=== PATIENT | female | born 1980 | race Caucasian/White ===

== ENCOUNTER 2018-07-25 03:17 | Emergency (ER) | payer MEDICAID ==
[~2018-07-25] VITALS: Ht 154.9 cm; Wt 70.9 kg
[~2018-07-25 03:17] MED LIST: TRAM50TA2 PO
[2018-07-25 03:19] VITALS: Ht 154.9 cm; Wt 70.9 kg
[2018-07-25] MEDS ORDERED: SOD CHLORIDE 0.9% 1,000 ML IV STA (03:58)
[2018-07-25] MEDS ORDERED: ONDANSETRON 4 MG INJ IV STA (03:58)
[2018-07-25] MEDS ORDERED: HYDROmorphONE 0.5 MG/0.5 ML SYG IV STA (04:03)
[2018-07-25] MEDS ORDERED: TRAM50TA2 PO ×2 (04:17→05:31)
[2018-07-25] MEDS ORDERED: ESOM40CA51 PO (04:17)
[2018-07-25] MEDS ORDERED: IBUP-1544 PO (04:18)
[2018-07-25] MEDS ORDERED: KETOROLAC 30 MG INJ IV STA (05:20)
--- NOTE | 2018-07-25 05:29 | ERD ---
ER Documentation Chief Complaint Chief Complaint FLANK PAIN AND RLQ-ABD PAIN WITH N/V WITH DYSUIRA X1DAY HPI Is a 37-year-old female coming appointment with a problem with nausea vomiting dysuria for 1 day. Pain with urination. Urgency frequency as well. No chills. No other current issues. ROS All systems reviewed and are negative except as per history of present illness. Medications Home Meds Reported Medications Ibuprofen* (Ibuprofen*) 800 Mg Tablet, 800 MG PO Q6H PRN for PAIN LEVEL 1-5 07/25/18 Tramadol HCl (Tramadol HCl) 50 Mg Tablet, 50 MG PO DAILY for 30 Days, #90 07/25/18 Esomeprazole Magnesium (Esomeprazole Magnesium) 40 Mg Capsule.dr, 40 MG PO DAILY for 90 Days, #90 07/25/18 Discontinued Scripts Tramadol HCl (Tramadol HCl) 50 Mg Tablet, 50 MG PO Q4 PRN for PAIN, #20 TAB Prov:BHARTI BIRCH PA-C 01/16/16 PMhx/Soc History of Surgery: Yes (HYSTERECTOMY,CHOLECYSTECTOMY ) Anesthesia Reaction: No Hx Neurological Disorder: No Hx Respiratory Disorders: No Hx Cardiac Disorders: No Hx Psychiatric Problems: No Hx Miscellaneous Medical Probl: No Hx Alcohol Use: No Hx Substance Use: No Hx Tobacco Use: No Smoking Status: Never smoker Physical Exam Vitals Vital Signs Date Temp Pulse Resp B/P (MAP) Pulse Ox O2 O2 Flow FiO2 Time Delivery Rate 07/25/18 97.9 91 18 142/95 99 03:19 (111) Physical Exam Const: No acute distress Head: Atraumatic Eyes: Normal Conjunctiva ENT: Normal External Ears, Nose and Mouth. Neck: Full range of motion. No meningismus. Resp: Clear to auscultation bilaterally Cardio: Regular rate and rhythm, no murmurs Abd: Soft, non tender, non distended. Normal bowel sounds Skin: No petechiae or rashes Back: No midline or flank tenderness Ext: No cyanosis, or edema Neur: Awake and alert Psych: Normal Mood and Affect Result Diagram: 07/25/18 0400 07/25/18 0400 Results 24 hrs Laboratory Tests Test 07/25/18 04:00 07/25/18 04:17 White Blood Count 14.2 10^3/ul Red Blood Count 4.78 10^6/ul Hemoglobin 13.8 g/dl Hematocrit 41.5 % Mean Corpuscular Volume 86.8 fl Mean Corpuscular Hemoglobin 28.9 pg Mean Corpuscular Hemoglobin Concent 33.3 g/dl Red Cell Distribution Width 12.5 % Platelet Count 342 10^3/UL Mean Platelet Volume 10.4 fl Immature Granulocytes % 0.400 % Neutrophils % 52.0 % Lymphocytes % 38.9 % Monocytes % 6.6 % Eosinophils % 1.6 % Basophils % 0.5 % Nucleated Red Blood Cells % 0.0 /100WBC Immature Granulocytes # 0.060 10^3/ul Neutrophils # 7.4 10^3/ul Lymphocytes # 5.5 10^3/ul Monocytes # 0.9 10^3/ul Eosinophils # 0.2 10^3/ul Basophils # 0.1 10^3/ul Nucleated Red Blood Cells # 0.0 10^3/ul Urine Color GO Urine Clarity CLEAR Urine pH 6.0 Urine Specific [place] 1.002 Urine Ketones NEGATIVE mg/dL Urine Nitrite POSITIVE mg/dL Urine Bilirubin NEGATIVE mg/dL Urine Urobilinogen 1+ mg/dL Urine Leukocyte Esterase NEGATIVE Maryse/ul Urine Microscopic RBC 0 /HPF Urine Microscopic WBC 0 /HPF Urine Hemoglobin 1+ mg/dL Urine Glucose NEGATIVE mg/dL Urine Total Protein NEGATIVE mg/dl Sodium Level 141 mmol/L Potassium Level 3.7 mmol/L Chloride Level 103 mmol/L Carbon Dioxide Level 26 mmol/L Anion Gap 12 Blood Urea Nitrogen 3 mg/dl Creatinine 0.51 mg/dl Est Glomerular Filtrat Rate mL/min > 60 mL/min Glucose Level 153 mg/dl Calcium Level 10.0 mg/dl Total Bilirubin 0.7 mg/dl Direct Bilirubin 0.00 mg/dl Indirect Bilirubin 0.7 mg/dl Aspartate Amino Transf (AST/SGOT) 68 IU/L Alanine Aminotransferase (ALT/SGPT) 99 IU/L Alkaline Phosphatase 169 IU/L Total Protein 8.2 g/dl Albumin 4.6 g/dl Globulin 3.60 g/dl Albumin/Globulin Ratio 1.27 Lipase 102 U/L POC Beta HCG, Qualitative NEGATIVE Current Medications Medications Dose Sig/Vladimir Start Time Status Last (Trade) Ordered Route PRN Stop Time Admin Dose Reason Admin Sodium 1,000 ml @ Q1H STAT 07/25/18 DC 07/25/18 Chloride 1,000 mls/hr IV 03:58 04:11 07/25/18 04:57 Ondansetron 4 mg ONCE STAT 07/25/18 DC 07/25/18 HCl (Zofran IV 03:58 04:11 Inj) 07/25/18 03:59 1 mg ONCE STAT 07/25/18 DC 07/25/18 Hydromorphone IV 04:03 04:10 HCl 07/25/18 04:04 (Dilaudid) Ketorolac 30 mg ONCE STAT 07/25/18 DC Tromethamine IV 05:20 (Toradol) 07/25/18 05:21 Procedures/MDM Medical decision making: Very pleasant patient has also cystitis. No evidence of pyelonephritis. Stable for outpatient management. Will be discharged home with Cipro and Pyridium. Follow with PCP. Departure Diagnosis: Primary Impression: Flank pain Condition: Stable CELESTINO JULIAN Jul 25, 2018 05:29
[2018-07-25] MEDS ORDERED: CIPROFLOXACIN 400MG/D5W 200 ML IVPB ONE (05:30)
[2018-07-25] MEDS ORDERED: CIPR500T4 PO (05:31)
[2018-07-25] MEDS ORDERED: PHEN-538 PO (05:31)
[2018-07-25] MEDS ORDERED: KETOROLAC 30 MG INJ ONE (05:37)
[2018-07-25] MEDS ORDERED: CIPROFLOXACIN 400MG/D5W 200 ML ONE (05:38)
[2018-07-25 06:02] VITALS: BP 109/74; PULSE 82; RESP 16
[2018-07-25] MEDS ORDERED: CEPH-443 PO (20:27)
[2018-07-25] MEDS ORDERED: ONDA4TAB14 PO (20:27)
[2018-07-25] MEDS ORDERED: HYDR-4011 PO (20:27)
[2018-07-25] MEDS ORDERED: IBUP-1542 PO (20:27)
== END 2018-07-25 06:41 | disposition home or self-care (01) ==
LOC: E/R 03:17
DX: R10.31 Right lower quadrant pain (principal); R11.2 Nausea with vomiting, unspecified
CPT/HCPCS: 36415; 71045; 74176; 80053; 81001; 81025; 83690; 85025; 96374; 96375; J0744; J1170; J1885; J2405; J7030; Z7502

== ENCOUNTER 2018-07-25 17:55 | Emergency (ER) | payer MEDICAID ==
[~2018-07-25] VITALS: Ht 154.9 cm; Wt 70.9 kg
[~2018-07-25 17:55] MED LIST changes: +CIPR500T4 PO; +ESOM40CA51 PO; +IBUP-1544 PO; +PHEN-538 PO
[2018-07-25 18:27] VITALS: Ht 154.9 cm; Wt 70.9 kg
--- NOTE | 2018-07-25 19:21 | ERD ---
ER Documentation Chief Complaint Chief Complaint abd/back pain, painful urination. was here yesterday for same HPI The patient is a 37-year-old female, presenting to the ER because of nausea vomiting, unable to tolerate Cipro. She was seen earlier today and discharged about 6 am today for acute cystitis with Cipro and Pyridium. She had extensive studies including a chest x-ray and abdominal pelvic CT that was unremarkable. She denies fever, chills, neck pain, chest pain, dyspnea, complains of vague abdominal discomfort and left lower back pain, complains of frequent urination and painful urination, denies diarrhea, constipation. She does not smoke, drink Past medical history: Gastritis Past surgical history: Hysterectomy, cholecystectomy, left leg surgery ROS All systems reviewed and are negative except as per history of present illness. Medications Home Meds Active Scripts Ibuprofen* (Motrin*) 600 Mg Tab, 600 MG PO Q6H PRN for PAIN AND OR ELEVATED TEMP, #20 TAB Prov:CHANG LOPEZ MD 07/25/18 Hydrocodone/Acetaminophen ([place] 5-325 Tablet) 1 Each Tablet, 1 TAB PO Q6H PRN for PAIN, #7 TAB Prov:CHANG LOPEZ MD 07/25/18 Cephalexin* (Keflex*) 500 Mg Capsule, 500 MG PO Q6, #40 CAP Prov:CHANG LOPEZ MD 07/25/18 Ondansetron (Ondansetron Odt) 4 Mg Tab.rapdis, 4 MG PO Q6H PRN for NAUSEA AND/OR VOMITING, #10 TAB Prov:CHANG LOPEZ MD 07/25/18 Tramadol HCl (Tramadol HCl) 50 Mg Tablet, 50 MG PO Q4 PRN for PAIN, #20 TAB Prov:CELESTINO JULIAN 07/25/18 Phenazopyridine Hcl* (Pyridium*) 200 Mg Tab, 200 MG PO TID PRN for URINARY PAIN, #6 TAB Prov:CELESTINO JULIAN 07/25/18 Ciprofloxacin Hcl* (Ciprofloxacin Hcl*) 500 Mg Tablet, 500 MG PO BID, #14 TAB Prov:CELESTINO JULIAN 07/25/18 Reported Medications Ibuprofen* (Ibuprofen*) 800 Mg Tablet, 800 MG PO Q6H PRN for PAIN LEVEL 1-5 07/25/18 Tramadol HCl (Tramadol HCl) 50 Mg Tablet, 50 MG PO DAILY for 30 Days, #90 07/25/18 Esomeprazole Magnesium (Esomeprazole Magnesium) 40 Mg Capsule.dr, 40 MG PO DAILY for 90 Days, #90 07/25/18 Discontinued Scripts Tramadol HCl (Tramadol HCl) 50 Mg Tablet, 50 MG PO Q4 PRN for PAIN, #20 TAB Prov:BIRCHBHARTI Schultz PA-C 01/16/16 Allergies Allergies: Coded Allergies: No Known Drug Allergies (Verified Allergy, Unknown, 07/25/18) PMhx/Soc History of Surgery: Yes (HYSTERECTOMY,CHOLECYSTECTOMY ) Anesthesia Reaction: No Hx Neurological Disorder: No Hx Respiratory Disorders: No Hx Cardiac Disorders: No Hx Psychiatric Problems: No Hx Miscellaneous Medical Probl: No Hx Alcohol Use: No Hx Substance Use: No Hx Tobacco Use: No Physical Exam Vitals Vital Signs Date Temp Pulse Resp B/P (MAP) Pulse Ox O2 O2 Flow FiO2 Time Delivery Rate 07/25/18 98.7 102 20 138/78 96 18:27 (98) Physical Exam Const: No acute distress. Head: Atraumatic. Eyes: Normal Conjunctiva. ENT: Normal External Ears, Nose and Mouth. Neck: Full range of motion. No meningismus. Resp: Clear to auscultation bilaterally. Cardio: Regular rate and rhythm. Abd: Soft, non distended, normal bowel sounds, non tender. Positive mild left CVA tenderness Skin: No petechiae or rashes. Back: No midline or flank tenderness. Ext: No cyanosis, or edema. Neur: Awake and alert. No focal deficit Psych: Normal Mood and Affect. Results 24 hrs Laboratory Tests Test 07/25/18 19:45 POC Beta HCG, Qualitative NEGATIVE Current Medications Medications Dose Sig/Vladimir Start Time Status Last (Trade) Ordered Route PRN Stop Time Admin Dose Reason Admin Sodium 1,000 ml @ Q1H ONCE 07/25/18 07/25/18 Chloride 1,000 mls/hr IV 20:00 20:07 07/25/18 20:59 Ceftriaxone 50 ml @ ONCE ONCE 07/25/18 DC 07/25/18 Sodium 100 mls/hr IVPB 20:00 20:07 07/25/18 20:29 Ketorolac 30 mg ONCE STAT 07/25/18 DC 07/25/18 Tromethamine IV 19:31 20:07 (Toradol) 07/25/18 19:34 Morphine 2 mg ONCE STAT 07/25/18 DC 07/25/18 Sulfate IV 19:31 20:07 (morphine) 07/25/18 19:34 Ondansetron 4 mg ONCE STAT 07/25/18 DC 07/25/18 HCl (Zofran IV 19:31 20:07 Inj) 07/25/18 19:34 Famotidine 20 mg ONCE ONCE 07/25/18 DC 07/25/18 (Pepcid Iv) IV 20:00 20:07 07/25/18 20:01 Procedures/MDM MEDICAL MAKING DECISION: The patient is a 37-year-old female, presenting with acute left pyelonephritis, she is unable to tolerate Cipro. Unfortunately the urine was not submitted for culture yesterday, I have requested for urine culture today. He was treated with Rocephin 1 g IV for acute left pyelonephritis, Toradol 30 mg IV, morphine 2 mg IV for pain, Zofran 4 mg IV for nausea, Pepcid 20 mg IV for gastritis with good response. She is stable for outpatient follow-up The differential diagnoses considered include but are not limited to cholelithiasis, cholecystitis, choledocholithiasis, cholangitis, pancreatitis, hepatitis, gastritis, peptic ulcer disease, gastric ulcer, appendicitis, cystitis, diverticulitis, partial small bowel obstruction. Departure Diagnosis: Primary Impression: Pyelonephritis of left kidney Condition: Good Comments She was discharged with Zofran, Keflex, [place], Motrin I discussed the findings with the patient. I advised the patient to follow-up with the primary physician in about 1-2 days, sooner if needed and return if any concern. Disclaimer: Inadvertent spelling and grammatical errors are likely due to EHR/dictation software use and do not reflect on the overall quality of patient care. Also, please note that the electronic time recorded on this note does not necessarily reflect the actual time of the patient encounter. CHANG LOPEZ MD Jul 25, 2018 19:21
[2018-07-25] MEDS ORDERED: ONDANSETRON 4 MG INJ IV STA (19:31)
[2018-07-25] MEDS ORDERED: morphine 2 MG INJ IV STA (19:31)
[2018-07-25] MEDS ORDERED: KETOROLAC 30 MG INJ IV STA (19:31)
[2018-07-25] MEDS ORDERED: FAMOTIDINE 20 MG INJ IV ONE (20:00)
[2018-07-25] MEDS ORDERED: CEFTRIAXONE 1 GM/50 ML (PMX) 50 ML IVPB ONE (20:00)
[2018-07-25] MEDS ORDERED: SOD CHLORIDE 0.9% 1,000 ML IV ONE (20:00)
[2018-07-25] MEDS ORDERED: CEPH-443 PO (20:27)
[2018-07-25] MEDS ORDERED: IBUP-1542 PO (20:27)
[2018-07-25] MEDS ORDERED: ONDA4TAB14 PO (20:27)
[2018-07-25] MEDS ORDERED: HYDR-4011 PO (20:27)
[2018-07-25] MEDS ORDERED: morphine 4 MG/ML VIAL IV STA (20:49)
[2018-07-25] MEDS ORDERED: METOCLOPRAMIDE 10 MG INJ IV ONE (21:00)
[2018-07-25 21:25] VITALS: BP 116/72; PULSE 89; RESP 17
== END 2018-07-25 21:25 | disposition home or self-care (01) ==
LOC: FTE 17:55
DX: N12 Tubulo-interstitial nephritis, not specified as acute or chronic (principal)
CPT/HCPCS: 81025; 87086; 96374; 96375; 96376; J0696; J1885; J2270; J2405; J2765; J7030; Z7502; Z7610

== ENCOUNTER 2018-08-05 12:04 | Emergency (ER) | payer MEDICAID ==
[~2018-08-05] VITALS: Ht 154.9 cm; Wt 73.0 kg
[~2018-08-05 12:04] MED LIST changes: +CEPH-443 PO; +HYDR-4011 PO; +IBUP-1542 PO; +ONDA4TAB14 PO
[2018-08-05 12:08] VITALS: Ht 154.9 cm; Wt 73.0 kg
[2018-08-05] MEDS ORDERED: morphine 4 MG/ML VIAL IV STA (12:55)
[2018-08-05] MEDS ORDERED: ONDANSETRON 4 MG INJ IV STA (12:55)
--- NOTE | 2018-08-05 13:48 | ERD ---
ER Documentation Chief Complaint Chief Complaint AP SINCE YESTERDAY HPI 37-year-old female with history of UTIs presents with complaint of pelvic pain since yesterday. Patient states that she was here on July 25 and was diagnosed with pyelonephritis. Patient was placed on antibiotics and she stated she finished the course. She states she has been having some dysuria but no hematuria. In addition states is been having some vaginal pain. Patient states she is been having nausea and emesis of vomiting today but no diarrhea. Patient denies any fevers. Patient denies any flank pain, chest pain, headaches, hematuria. ROS All systems reviewed and are negative except as per history of present illness. Medications Home Meds Active Scripts Hydrocodone/Acetaminophen ([place] 5-325 Tablet) 1 Each Tablet, 1 TAB PO Q6H PRN for PAIN, #10 TAB Prov:CELESTINO GLASGOW 08/05/18 Ondansetron (Ondansetron Odt) 4 Mg Tab.rapdis, 4 MG PO Q6H PRN for NAUSEA AND/OR VOMITING, #10 TAB Prov:CELESTINO GLASGOW 08/05/18 Doxycycline Hyclate* (Doxycycline Hyclate*) 100 Mg Tablet.dr, 100 MG PO BID for 14 Days, TAB Prov:CELESTINO GLASGOW 08/05/18 Ibuprofen* (Motrin*) 600 Mg Tab, 600 MG PO Q6H PRN for PAIN AND OR ELEVATED TEMP , #20 TAB Prov:CHANG LOPEZ MD 07/25/18 Hydrocodone/Acetaminophen ([place] 5-325 Tablet) 1 Each Tablet, 1 TAB PO Q6H PRN for PAIN, #7 TAB Prov:CHANG LOPEZ MD 07/25/18 Cephalexin* (Keflex*) 500 Mg Capsule, 500 MG PO Q6, #40 CAP Prov:CHANG LOPEZ MD 07/25/18 Ondansetron (Ondansetron Odt) 4 Mg Tab.rapdis, 4 MG PO Q6H PRN for NAUSEA AND/OR VOMITING, #10 TAB Prov:CHANG LOPEZ MD 07/25/18 Tramadol HCl (Tramadol HCl) 50 Mg Tablet, 50 MG PO Q4 PRN for PAIN, #20 TAB Prov:CELESTINO JULIAN 07/25/18 Phenazopyridine Hcl* (Pyridium*) 200 Mg Tab, 200 MG PO TID PRN for URINARY PAIN, #6 TAB Prov:CELESTINO JULIAN 07/25/18 Ciprofloxacin Hcl* (Ciprofloxacin Hcl*) 500 Mg Tablet, 500 MG PO BID, #14 TAB Prov:CELESTINO JULIAN 07/25/18 Reported Medications Ibuprofen* (Ibuprofen*) 800 Mg Tablet, 800 MG PO Q6H PRN for PAIN LEVEL 1-5 07/25/18 Tramadol HCl (Tramadol HCl) 50 Mg Tablet, 50 MG PO DAILY for 30 Days, #90 07/25/18 Esomeprazole Magnesium (Esomeprazole Magnesium) 40 Mg Capsule.dr, 40 MG PO DAILY for 90 Days, #90 07/25/18 Allergies Allergies: Coded Allergies: No Known Drug Allergies (Verified Allergy, Unknown, 07/25/18) PMhx/Soc History of Surgery: Yes (HYSTERECTOMY,CHOLECYSTECTOMY ) Anesthesia Reaction: No Hx Neurological Disorder: No Hx Respiratory Disorders: No Hx Cardiac Disorders: No Hx Psychiatric Problems: No Hx Miscellaneous Medical Probl: No Hx Alcohol Use: No Hx Substance Use: No Hx Tobacco Use: No Smoking Status: Never smoker FmHx Family History: No diabetes, No coronary disease, No other Physical Exam Vitals Vital Signs Date Temp Pulse Resp B/P (MAP) Pulse Ox O2 O2 Flow FiO2 Time Delivery Rate 08/05/18 69 18 122/76 99 Room Air 15:28 (91) 08/05/18 98.5 78 18 141/72 99 12:08 (95) Physical Exam Const: No acute distress Head: Atraumatic Eyes: Normal Conjunctiva ENT: Normal External Ears, Nose and Mouth. Neck: Full range of motion. No meningismus. Resp: Clear to auscultation bilaterally Cardio: Regular rate and rhythm, no murmurs Abd: Tenderness to palpation in the lower left and right quadrants bilaterally. Skin: No petechiae or rashes Back: No midline or flank tenderness Ext: No cyanosis, or edema Neur: Awake and alert Psych: Normal Mood and Affect Pelvic Exam: Gas Pumper present Bimanual: Cervical motion tenderness. Result Diagram: 08/05/18 1314 08/05/18 1314 Results 24 hrs Laboratory Tests Test 08/05/18 13:14 08/05/18 13:17 White Blood Count 10.8 10^3/ul Red Blood Count 4.65 10^6/ul Hemoglobin 13.6 g/dl Hematocrit 39.8 % Mean Corpuscular Volume 85.6 fl Mean Corpuscular Hemoglobin 29.2 pg Mean Corpuscular Hemoglobin Concent 34.2 g/dl Red Cell Distribution Width 12.3 % Platelet Count 336 10^3/UL Mean Platelet Volume 10.8 fl Immature Granulocytes % 0.500 % Neutrophils % 57.8 % Lymphocytes % 32.7 % Monocytes % 6.2 % Eosinophils % 2.2 % Basophils % 0.6 % Nucleated Red Blood Cells % 0.0 /100WBC Immature Granulocytes # 0.050 10^3/ul Neutrophils # 6.3 10^3/ul Lymphocytes # 3.5 10^3/ul Monocytes # 0.7 10^3/ul Eosinophils # 0.2 10^3/ul Basophils # 0.1 10^3/ul Nucleated Red Blood Cells # 0.0 10^3/ul Urine Color YELLOW Urine Clarity CLEAR Urine pH 6.0 Urine Specific [place] 1.009 Urine Ketones NEGATIVE mg/dL Urine Nitrite NEGATIVE mg/dL Urine Bilirubin NEGATIVE mg/dL Urine Urobilinogen NEGATIVE mg/dL Urine Leukocyte Esterase NEGATIVE Maryse/ul Urine Microscopic RBC 1 /HPF Urine Microscopic WBC 1 /HPF Urine Squamous Epithelial Cells FEW /HPF Urine Hemoglobin 1+ mg/dL Urine Glucose NEGATIVE mg/dL Urine Total Protein NEGATIVE mg/dl Sodium Level 140 mmol/L Potassium Level 4.3 mmol/L Chloride Level 103 mmol/L Carbon Dioxide Level 26 mmol/L Anion Gap 11 Blood Urea Nitrogen 7 mg/dl Creatinine 0.55 mg/dl Est Glomerular Filtrat Rate mL/min > 60 mL/min Glucose Level 190 mg/dl Calcium Level 9.4 mg/dl Total Bilirubin 0.5 mg/dl Direct Bilirubin 0.00 mg/dl Indirect Bilirubin 0.5 mg/dl Aspartate Amino Transf (AST/SGOT) 97 IU/L Alanine Aminotransferase (ALT/SGPT) 129 IU/L Alkaline Phosphatase 126 IU/L Total Protein 8.1 g/dl Albumin 4.6 g/dl Globulin 3.50 g/dl Albumin/Globulin Ratio 1.31 Lipase 83 U/L POC Beta HCG, Qualitative NEGATIVE Current Medications Medications Dose Sig/Vladimir Start Time Status Last (Trade) Ordered Route PRN Stop Time Admin Dose Reason Admin Morphine 4 mg ONCE STAT 08/05/18 DC 08/05/18 Sulfate IV 12:55 13:19 (morphine) 08/05/18 12:58 Ondansetron 4 mg ONCE STAT 08/05/18 DC 08/05/18 HCl (Zofran IV 12:55 13:19 Inj) 08/05/18 12:58 Morphine 2 mg ONCE STAT 08/05/18 DC 08/05/18 Sulfate IV 14:14 14:20 (morphine) 08/05/18 14:15 Ceftriaxone 250 mg ONCE ONCE 08/05/18 DC 08/05/18 Sodium IVPB 14:30 15:17 (Rocephin) 08/05/18 14:31 Procedures/MDM DIAGNOSTIC IMAGING REPORT Patient: ANDRES QUINONEZ : 1980 Age: 37 Sex: F MR #: [id number] DOS: 08/05/18 1255 Ordering MD: CELESTINO GLASGOW Location: [facility] Room/Bed: PROCEDURE: US Pelvis. CLINICAL INDICATION: Pelvic pain. TECHNIQUE: The pelvis was evaluated with transabdominal and transvaginal sonography in the axial and sagittal planes. COMPARISON: 01/16/2016 FINDINGS: Uterus: Status post hysterectomy. Right ovary: 3.4 x 2.3 x 2.2 cm. Left ovary: 3.8 x 2.5 x 1.6 cm. Ovarian masses: None. Color Doppler and pulsed Doppler sonography demonstrate normal flow to the ovaries. Other pelvic masses: None. Free fluid: None. IMPRESSION: Status post hysterectomy. No adnexal lesions. Bilateral ovarian flow. Physician Jackie Date Time Electronically viewed and signed by Physician Jackie on 08/05/2018 14:13 RD/ CC: CELESTINO GLASGOW [id number] MDM: Patient had just received a abdomen pelvis CT 10 days ago and results within normal limits except for possible cystitis therefore I do not want to expose patient to more radiation for another CT. Also, given patient's complaint of bilateral pelvic pain as well as findings of cervical motion tenderness on exam there is high likelihood that her symptoms are due to PID which is not been treated. Patient was given 250 mg of ceftriaxone and disc harged with 14-day course of doxycycline. I have low suspicion for ectopic , ovarian torsion, PID, tubo-ovarian abscess, uterine prolapse, ovarian cancer, uterine cancer, nephrolithiasis, pyelonephritis, appendicitis, diverticulitis, bowel obstruction, perirectal abscess. At time of discharge patient's pain was controlled patient felt comfortable going home. At this time, patient is stable for discharge and outpatient management. I have instructed the patient to follow-up with his/her primary care physician in 1-2 days. I have discussed with the patient the possibility of needing to see a specialist for further workup and imaging studies if symptoms persist. I have instructed the patient to promptly return to the ER for any new or worsening symptoms including but not limited to increased pain, fever, nausea, vomiting, weakness or LOC. The patient and/or family expressed understanding of and agreement with this plan. All questions were answered. Home care instructions were provided. DISCLAIMER: Inadvertent spelling and grammatical errors are likely due to EHR/dictation software use and do not reflect on the overall quality of patient care. Also, please note that the electronic time recorded on this note does not necessarily reflect the actual time of the patient encounter. Departure Diagnosis: Primary Impression: Pelvic pain Condition: Stable CELESTINO GLASGOW Aug 05, 2018 13:48
[2018-08-05] MEDS ORDERED: morphine 2 MG INJ IV STA (14:14)
[2018-08-05] MEDS ORDERED: DOXY100T20 PO (14:23)
[2018-08-05] MEDS ORDERED: ONDA4TAB14 PO (14:25)
[2018-08-05] MEDS ORDERED: HYDR-4011 PO (14:28)
[2018-08-05] MEDS ORDERED: CEFTRIAXONE 250 MG INJ IVPB ONE (14:30)
[2018-08-05 15:28] VITALS: BP 122/76; PULSE 69; RESP 18
[2018-08-06] MEDS ORDERED: METO10TA92 PO (12:06)
== END 2018-08-05 15:31 | disposition home or self-care (01) ==
LOC: FTE 12:04
DX: R10.2 Pelvic and perineal pain (principal); R11.2 Nausea with vomiting, unspecified
CPT/HCPCS: 36415; 76856; 80053; 81001; 81025; 83690; 85025; 87086; 87591; 96374; 96375; 96376; J0696; J2270; J2405; Z7502

== ENCOUNTER 2018-08-06 10:28 | Emergency (ER) | payer MEDICAID ==
[~2018-08-06] VITALS: Ht 157.5 cm; Wt 70.9 kg
[~2018-08-06 10:28] MED LIST changes: +DOXY100T20 PO
[2018-08-06 10:32] VITALS: BP 132/78; PULSE 79; RESP 18; Ht 157.5 cm; Wt 70.9 kg
[2018-08-06] MEDS ORDERED: METOCLOPRAMIDE 10 MG TAB PO ONE (12:00)
[2018-08-06] MEDS ORDERED: METO10TA92 PO (12:06)
--- NOTE | 2018-08-06 12:07 | ERD ---
ER Documentation Chief Complaint Chief Complaint abdominal pain w/nausea seen here yesterday HPI 37 year old female presents to the ED for nausea/vomiting x 1 day. She was seen in this ED yesterday and was diagnosed with PID and discharged with appropriate abx and pain management control. She reports that she filled her prescriptions and is taking the medications as scheduled. She states that she is feeling better but reports she began feeling nauscious and threw up several times this morning. She states she was told to come back if she began vomiting so that is why she is here today. She denies any new fevers. She has taken Zofran at home with no relief of her symptoms. She denies any other new symptoms today. ROS All systems reviewed and are negative except as per history of present illness. Medications Home Meds Active Scripts Metoclopramide* (Reglan*) 10 Mg Tablet, 10 MG PO Q6 PRN for NAUSEA AND/OR VOMITING, #15 TAB Prov:TONY COFFEY PA-C 08/06/18 Hydrocodone/Acetaminophen ([place] 5-325 Tablet) 1 Each Tablet, 1 TAB PO Q6H PRN for PAIN, #10 TAB Prov:CELESTINO GLASGOW 08/05/18 Ondansetron (Ondansetron Odt) 4 Mg Tab.rapdis, 4 MG PO Q6H PRN for NAUSEA AND/OR VOMITING, #10 TAB Prov:CELESTINO GLASGOW 08/05/18 Doxycycline Hyclate* (Doxycycline Hyclate*) 100 Mg Tablet.dr, 100 MG PO BID for 14 Days, TAB Prov:CELESTINO GLASGOW 08/05/18 Ibuprofen* (Motrin*) 600 Mg Tab, 600 MG PO Q6H PRN for PAIN AND OR ELEVATED TEMP, #20 TAB Prov:CHANG LOPEZ MD 07/25/18 Hydrocodone/Acetaminophen ([place] 5-325 Tablet) 1 Each Tablet, 1 TAB PO Q6H PRN for PAIN, #7 TAB Prov:CHANG LOPEZ MD 07/25/18 Cephalexin* (Keflex*) 500 Mg Capsule, 500 MG PO Q6, #40 CAP Prov:CHANG LOPEZ MD 07/25/18 Ondansetron (Ondansetron Odt) 4 Mg Tab.rapdis, 4 MG PO Q6H PRN for NAUSEA AND/OR VOMITING, #10 TAB Prov:CHANG LOPEZ MD 07/25/18 Tramadol HCl (Tramadol HCl) 50 Mg Tablet, 50 MG PO Q4 PRN for PAIN, #20 TAB Prov:CELESTINO JULIANTadeo 07/25/18 Phenazopyridine Hcl* (Pyridium*) 200 Mg Tab, 200 MG PO TID PRN for URINARY PAIN, #6 TAB Prov:CELESTINO JULIANTadeo 07/25/18 Ciprofloxacin Hcl* (Ciprofloxacin Hcl*) 500 Mg Tablet, 500 MG PO BID, #14 TAB Prov:CELESTINO JULIANTadeo 07/25/18 Reported Medications Ibuprofen* (Ibuprofen*) 800 Mg Tablet, 800 MG PO Q6H PRN for PAIN LEVEL 1-5 07/25/18 Tramadol HCl (Tramadol HCl) 50 Mg Tablet, 50 MG PO DAILY for 30 Days, #90 07/25/18 Esomeprazole Magnesium (Esomeprazole Magnesium) 40 Mg Capsule.dr, 40 MG PO DAILY for 90 Days, #90 07/25/18 Allergies Allergies: Coded Allergies: No Known Drug Allergies (Verified Allergy, Unknown, 07/25/18) PMhx/Soc History of Surgery: Yes (HYSTERECTOMY,CHOLECYSTECTOMy,traci feet sx) Anesthesia Reaction: No Hx Neurological Disorder: No Hx Respiratory Disorders: No Hx Cardiac Disorders: No Hx Psychiatric Problems: No Hx Miscellaneous Medical Probl: No Hx Alcohol Use: No Hx Substance Use: No Hx Tobacco Use: No FmHx Family History: No diabetes Physical Exam Vitals Vital Signs Date Temp Pulse Resp B/P (MAP) Pulse Ox O2 O2 Flow FiO2 Time Delivery Rate 08/06/18 98.6 79 18 132/78 99 10:32 (96) Physical Exam Const: No acute distress Head: Atraumatic Eyes: Normal Conjunctiva ENT: Normal External Ears, Nose and Mouth. Neck: Full range of motion. Resp: Clear to auscultation bilaterally Cardio: Regular rate and rhythm, Abd: Slight Tenderness to palpation in the lower left and right quadrants bilaterally Skin: No petechiae or rashes Back: No midline or flank tenderness Ext: No cyanosis, or edema Neur: Awake and alert Psych: Normal Mood and Affect Results 24 hrs Current Medications Medications Dose Sig/Vladimir Start Time Status Last (Trade) Ordered Route PRN Stop Time Admin Dose Reason Admin 10 mg ONCE ONCE 08/06/18 DC 08/06/18 Metoclopramid PO 12:00 08/06/18 11:48 e HCl 12:01 (Reglan) Procedures/MDM ED COURSE: The patient was stable throughout ED course. I kept the patient informed of laboratory and diagnostic imaging results throughout the ED course. PROCEDURES: PO challenge MEDICATIONS GIVEN: Reglan Patient tolerated medication well with no adverse reactions. Patient reported improvement in pain. MEDICAL DECISION MAKING: Patient is a 37 year old female complaining of N/V x 1 day. She was seen in the ED yesterday and diagnosed with PID and given proper abx treatment and pain management. She states she is feeling better today than yesterday but reports N/V. She was told to come back to the ED if she experienced this and this is why she is here today. Physican exam, the patient was in no acute distress. She appeared ok. Patient was given Reglan and a PO challenge was conducted. After checking back with the patient, she had not vomited and stated that her nausea went away. At this time, I have low suspicion for bowel perforation, cholecystitis, choledocholithiasis, ascending cholangitis, hepatic abscess, pancreatitis, PUD, splenic rupture, diverticulitis, appendicitis, constipation. Patient was given a prescription for Reglan. Vital signs were reviewed. Patient is afebrile. Patient was not hypoxic. Patient was hemodynamically stable. Patient was told to follow up with primary care for further care and management. PRESCRIPTION: Reglan DISCHARGE: At this time, patient is stable for discharge and outpatient management. I have instructed the patient to follow-up with his/her primary care physician in 1-2 days. I have discussed with the patient the possibility of needing to see a s pecialist for further workup and imaging studies if symptoms persist. I have instructed the patient to promptly return to the ER for any new or worsening symptoms including increased pain, fever, nausea, vomiting, weakness or LOC. The patient expressed understanding of and agreement with this plan. All questions were answered. Home care instructions were provided. Disclaimer: Inadvertent spelling and grammatical errors are likely due to EHR/dictation software use and do not reflect on the overall quality of patient care. Also, please note that the electronic time recorded on this note does not necessarily reflect the actual time of the patient encounter. Departure Diagnosis: Primary Impression: Nausea and vomiting Vomiting type: unspecified Vomiting Intractability: unspecified Qualified Codes: R11.2 - Nausea with vomiting, unspecified Condition: Fair Patient Instructions: Nausea and Vomiting-Adult Referrals: [facility] YOU HAVE RECEIVED A MEDICAL SCREENING EXAM AND THE RESULTS INDICATE THAT YOU DO NOT HAVE A CONDITION THAT REQUIRES URGENT TREATMENT IN THE EMERGENCY DEPARTMENT. FURTHER EVALUATION AND TREATMENT OF YOUR CONDITION CAN WAIT UNTIL YOU ARE SEEN IN YOUR DOCTORS OFFICE WITHIN THE NEXT 1-2 DAYS. IT IS YOUR RESPONSIBILITY TO MAKE AN APPOINTMENT FOR FOLOW-UP CARE. IF YOU HAVE A PRIMARY DOCTOR --you should call your primary doctor and schedule an appointment IF YOU DO NOT HAVE A PRIMARY DOCTOR YOU CAN CALL OUR PHYSICIAN REFERRAL HOTLINE AT IF YOU CAN NOT AFFORD TO SEE A PHYSICIAN YOU CAN CHOSE FROM THE FOLLOWING [facility] [address] [facility] [facility] [address] [address] [facility] [address] [facility] [facility] [address] [facility] [address] [facility] [address] [facility]. [facility] [address] [facility]. [facility] YOU HAVE RECEIVED A MEDICAL SCREENING EXAM AND THE RESULTS INDICATE THAT YOU DO NOT HAVE A CONDITION THAT REQUIRES URGENT TREATMENT IN THE EMERGENCY DEPARTMENT. FURTHER EVALUATION AND TREATMENT OF YOUR CONDITION CAN WAIT UNTIL YOU ARE SEEN IN YOUR DOCTORS OFFICE WITHIN THE NEXT 1-2 DAYS. IT IS YOUR RESPONSIBILITY TO MAKE AN APPOINTMENT FOR FOLOW-UP CARE. IF YOU HAVE A PRIMARY DOCTOR --you should call your primary doctor and schedule and appointment IF YOU DO NOT HAVE A PRIMARY DOCTOR YOU CAN CALL OUR PHYSICIAN REFERRAL HOTLINE AT . IF YOU CAN NOT AFFORD TO SEE A PHYSICIAN YOU CAN CHOSE FROM THE FOLLOWING [facility]: [facility] [address] [place] [address] [facility] [address] [place] [address] [facility] [address] [place] [address] Additional Instructions: Continue taking her medications that he got from the previous visits here. Continue your antibiotics. Call your primary care doctor TOMORROW for an appointment during the next 1-2 days.See the doctor sooner or return here if your condition worsens before your appointment time. TONY COFFEY PA-C Aug 06, 2018 12:07
== END 2018-08-06 12:23 | disposition home or self-care (01) ==
LOC: FTE 10:28
DX: R11.2 Nausea with vomiting, unspecified (principal)
CPT/HCPCS: Z7502; Z7610; 99283

== ENCOUNTER 2018-09-04 01:15 | Emergency (ER) | payer MEDICAID ==
[~2018-09-04] VITALS: Ht 154.9 cm; Wt 75.0 kg
[~2018-09-04 01:15] MED LIST changes: +METO10TA92 PO
[2018-09-04 01:18] VITALS: Ht 154.9 cm; Wt 75.0 kg
[2018-09-04] MEDS ORDERED: ONDANSETRON 4 MG INJ IV STA (02:16)
[2018-09-04] MEDS ORDERED: KETOROLAC 30 MG INJ IV STA (02:16)
[2018-09-04] MEDS ORDERED: morphine 2 MG INJ IV STA (02:16)
[2018-09-04] MEDS ORDERED: SOD CHLORIDE 0.9% 1,000 ML IV STA (02:16)
--- NOTE | 2018-09-04 03:33 | ERD ---
ER Documentation Chief Complaint Chief Complaint ABD PAIN WITH N/V AND HEADACHE XTODAY HPI 37-year-old female presents with complaint of fever, nausea, vomiting, and diarrhea, since last night. Patient was here with similar complaints 1 month ago and received a CT abdomen with contrast. Results were within normal limits. 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 Patient states she has a history of hysterectomy. Patient denies any dysuria, hematuria, hematemesis, hematochezia. ROS All systems reviewed and are negative except as per history of present illness. Medications Home Meds Active Scripts Hydrocodone/Acetaminophen ([place] 5-325 Tablet) 1 Each Tablet, 1 TAB PO Q6H PRN for PAIN, #10 TAB Prov:CELESTINO GLASGOW 09/04/18 Ibuprofen* (Motrin*) 600 Mg Tab, 600 MG PO Q6, #30 TAB Prov:CELESTINO GLASGOW 09/04/18 Ciprofloxacin Hcl* (Ciprofloxacin Hcl*) 500 Mg Tablet, 500 MG PO BID for 7 Days, TAB Prov:CELESTINO GLASGOW 09/04/18 Metoclopramide* (Reglan*) 10 Mg Tablet, 10 MG PO Q6 PRN for NAUSEA AND/OR VOMITING, #15 TAB Prov:TONY COFFEY PA-C 08/06/18 Hydrocodone/Acetaminophen ([place] 5-325 Tablet) 1 Each Tablet, 1 TAB PO Q6H PRN for PAIN, #10 TAB Prov:CELESTINO GLASOGW 08/05/18 Ondansetron (Ondansetron Odt) 4 Mg Tab.rapdis, 4 MG PO Q6H PRN for NAUSEA AND/OR VOMITING, #10 TAB Prov:CELESTINO GLASGOW 08/05/18 Doxycycline Hyclate* (Doxycycline Hyclate*) 100 Mg Tablet.dr, 100 MG PO BID for 14 Days, TAB Prov:CELESTINO GLASGOW 08/05/18 Ibuprofen* (Motrin*) 600 Mg Tab, 600 MG PO Q6H PRN for PAIN AND OR ELEVATED TEMP, #20 TAB Prov:CHANG LOPEZ MD 07/25/18 Hydrocodone/Acetaminophen ([place] 5-325 Tablet) 1 Each Tablet, 1 TAB PO Q6H PRN for PAIN, #7 TAB Prov:CHANG LOPEZ MD 07/25/18 Cephalexin* (Keflex*) 500 Mg Capsule, 500 MG PO Q6, #40 CAP Prov:CHANG LOPEZ MD 07/25/18 Ondansetron (Ondansetron Odt) 4 Mg Tab.rapdis, 4 MG PO Q6H PRN for NAUSEA AND/OR VOMITING, #10 TAB Prov:CHANG LOPEZ MD 07/25/18 Tramadol HCl (Tramadol HCl) 50 Mg Tablet, 50 MG PO Q4 PRN for PAIN, #20 TAB Prov:CELESTINO JULIAN 07/25/18 Phenazopyridine Hcl* (Pyridium*) 200 Mg Tab, 200 MG PO TID PRN for URINARY PAIN, #6 TAB Prov:CELESTINO JULIAN 07/25/18 Ciprofloxacin Hcl* (Ciprofloxacin Hcl*) 500 Mg Tablet, 500 MG PO BID, #14 TAB Prov:CELESTINO JULIAN 07/25/18 Reported Medications Ibuprofen* (Ibuprofen*) 800 Mg Tablet, 800 MG PO Q6H PRN for PAIN LEVEL 1-5 07/25/18 Tramadol HCl (Tramadol HCl) 50 Mg Tablet, 50 MG PO DAILY for 30 Days, #90 07/25/18 Esomeprazole Magnesium (Esomeprazole Magnesium) 40 Mg Capsule.dr, 40 MG PO DAILY for 90 Days, #90 07/25/18 Allergies Allergies: Coded Allergies: No Known Drug Allergies (Verified Allergy, Unknown, 07/25/18) PMhx/Soc Medical and Surgical Hx: pt denies Medical Hx History of Surgery: Yes (HYSTERECTOMY,CHOLECYSTECTOMy,traci feet sx) Anesthesia Reaction: No Hx Neurological Disorder: No Hx Respiratory Disorders: No Hx Cardiac Disorders: No Hx Psychiatric Problems: No Hx Miscellaneous Medical Probl: No Hx Alcohol Use: No Hx Substance Use: No Hx Tobacco Use: No FmHx Family History: No diabetes, No coronary disease, No other Physical Exam Vitals Vital Signs Date Temp Pulse Resp B/P (MAP) Pulse Ox O2 O2 Flow FiO2 Time Delivery Rate 09/04/18 98.9 87 18 118/63 96 Room Air 05:45 (81) 09/04/18 98.6 97 19 150/88 97 01:18 (108) Physical Exam Const: No acute distress Head: Atraumatic Eyes: Normal Conjunctiva ENT: Normal External Ears, Nose and Mouth. Neck: Full range of motion. No meningismus. Resp: Clear to auscultation bilaterally Cardio: Regular rate and rhythm, no murmurs Abd: Soft, non tender, non distended. Normal bowel sounds. Negative McBurney's. Negative Benavides's. Skin: No petechiae or rashes Back: No midline or flank tenderness Ext: No cyanosis, or edema Neur: Awake and alert Psych: Normal Mood and Affect Result Diagram: 09/04/1822709/04/18227 Results 24 hrs Laboratory Tests Test 09/04/18 02:28 09/04/18 02:43 White Blood Count 14.1 10^3/ul Red Blood Count 4.84 10^6/ul Hemoglobin 14.1 g/dl Hematocrit 41.8 % Mean Corpuscular Volume 86.4 fl Mean Corpuscular Hemoglobin 29.1 pg Mean Corpuscular Hemoglobin Concent 33.7 g/dl Red Cell Distribution Width 12.5 % Platelet Count 297 10^3/UL Mean Platelet Volume 12.0 fl Immature Granulocytes % 0.400 % Neutrophils % 55.8 % Lymphocytes % 35.6 % Monocytes % 6.1 % Eosinophils % 1.6 % Basophils % 0.5 % Nucleated Red Blood Cells % 0.0 /100WBC Immature Granulocytes # 0.050 10^3/ul Neutrophils # 7.9 10^3/ul Lymphocytes # 5.0 10^3/ul Monocytes # 0.9 10^3/ul Eosinophils # 0.2 10^3/ul Basophils # 0.1 10^3/ul Nucleated Red Blood Cells # 0.0 10^3/ul Urine Color YELLOW Urine Clarity CLEAR Urine pH 5.0 Urine Specific [place] 1.016 Urine Ketones NEGATIVE mg/dL Urine Nitrite NEGATIVE mg/dL Urine Bilirubin NEGATIVE mg/dL Urine Urobilinogen NEGATIVE mg/dL Urine Leukocyte Esterase NEGATIVE Maryse/ul Urine Hemoglobin NEGATIVE mg/dL Urine Glucose NEGATIVE mg/dL Urine Total Protein NEGATIVE mg/dl Sodium Level 137 mmol/L Potassium Level 3.9 mmol/L Chloride Level 103 mmol/L Carbon Dioxide Level 22 mmol/L Anion Gap 12 Blood Urea Nitrogen 8 mg/dl Creatinine 0.52 mg/dl Est Glomerular Filtrat Rate mL/min > 60 mL/min Glucose Level 170 mg/dl Calcium Level 9.7 mg/dl Total Bilirubin 0.6 mg/dl Direct Bilirubin 0.00 mg/dl Indirect Bilirubin 0.6 mg/dl Aspartate Amino Transf (AST/SGOT) 117 IU/L Alanine Aminotransferase (ALT/SGPT) 138 IU/L Alkaline Phosphatase 134 IU/L Total Protein 8.5 g/dl Albumin 4.5 g/dl Globulin 4.00 g/dl Albumin/Globulin Ratio 1.12 Lipase 70 U/L POC Beta HCG, Qualitative NEGATIVE Current Medications Medications Dose Sig/Vladimir Start Time Status Last (Trade) Ordered Route PRN Stop Time Admin Dose Reason Admin Sodium 1,000 ml @ Q1H STAT 09/04/18 DC 09/04/18 Chloride 1,000 mls/hr IV 02:16 02:41 09/04/18 03:15 Morphine 2 mg ONCE STAT 09/04/18 DC 09/04/18 Sulfate IV 02:16 02:42 (morphine) 09/04/18 02:17 Ondansetron 4 mg ONCE STAT 09/04/18 DC 09/04/18 HCl (Zofran IV 02:16 02:42 Inj) 09/04/18 02:17 Ketorolac 30 mg ONCE STAT 09/04/18 DC 09/04/18 Tromethamine IV 02:16 02:42 (Toradol) 09/04/18 02:17 1 mg ONCE STAT 09/04/18 DC Hydromorphone IM 04:20 HCl 09/04/18 04:33 (Dilaudid) 1 mg ONCE STAT 09/04/18 DC Hydromorphone IM 04:33 HCl 09/04/18 04:36 (Dilaudid) 1 mg ONCE STAT 09/04/18 DC 09/04/18 Hydromorphone IV 04:37 04:41 HCl 09/04/18 04:40 (Dilaudid) Procedures/MDM DIAGNOSTIC IMAGING REPORT Patient: ANDRES QUINONEZ : 1980 Age: 37 Sex: F MR #: [id number] DOS: 09/04/183 Ordering MD: CELESTINO GLASGOW Location: [facility] Room/Bed: PROCEDURE: Pelvic ultrasound color-flow Doppler of the adnexa CLINICAL INDICATION: Pain TECHNIQUE: Multiple sagittal, oblique and transverse real time images were obtained of the lower abdomen and pelvis using a transabdominal as well a transvaginal approach. Color-flow Doppler of the adnexa was performed. COMPARISON: Pelvic ultrasound 08/05/2018 FINDINGS: Absent uterus consistent with hysterectomy. Ovaries normal in size right measuring 2.94 x 1.51 x 1.96 cm and the left measuring 3.28 x 2.84 x 2.64 cm. No ovarian masses. Flow to both ovaries without ultrasonic evidence of ovarian torsion. No adnexal masses or free fluid. IMPRESSION: 1. Status post hysterectomy. 2. Unremarkable ovaries without focal lesions and no ultrasonic evidence of ovarian torsion. 3. No adnexal masses or free fluid. RPTAT:AAJJ Physician Nell Date Time Electronically viewed and signed by Physician Nell on 09/04/2018 03:11 BM/ CC: CELESTINO GLASGOW [phone] DIAGNOSTIC IMAGING REPORT Patient: ANDRES QUINONEZ : 1980 Age: 37 Sex: F MR #: [id number] DOS: 09/04/18 0428 Ordering MD: CELESTINO GLASGOW Location: [facility] Room/Bed: PROCEDURE: CT Abdomen and pelvis without contrast. CLINICAL INDICATION: Abdominal pain TECHNIQUE: CT scan of the abdomen and pelvis without contrast was performed on a multidetector high-resolution CT scan. . Coronal and sagittal reformatted images were obtained from the axial source images. Standard CT scan of the abdomen pelvis without contrast protocols were performed. The total exam CTDI equals 12.59 mGy and the total exam DLP equals 732.38 mGy- cm. One or more of the following dose reduction techniques were used: Automated exposure control. Adjustment of the mA and/or kV according to patient size. Use of iterative reconstruction technique. Dicom images are available COMPARISON: CT abdomen pelvis 07/25/2018 FINDINGS: Status post prior cholecystectomy. No evidence of biliary ductal dilation. Kidneys are normal in size without calcified calculi hydronephrosis or intra renal masses bilaterally. No evidence of ureteral calcified calculi or dilatation. Mild urinary bladder wall thickening may represent cystitis. Status post hysterectomy. No adnexal masses. Stomach, small bowel, large bowel and appendix are unremarkable. No evidence of intra-abdominal free air, free fluid, abscesses or lymphadenopathy. Diffuse hepatic fatty infiltration without focal hepatic lesions. Spleen pancreas and adrenal glands unremarkable. Lung bases unremarkable. Aorta unremarkable. Tiny fat containing umbilical hernia without herniated bowel or strangulation. Degenerative changes of the lower thoracic and lumbar spine without acute osseous findings are osteoblastic/osteolytic lesions. IMPRESSION: 1. Status post prior cholecystectomy. No biliary ductal dilation. 2. No calcified urinary calculi or obstructive uropathy. 3. Mild circumferential urinary wall thickening may represent cystitis. 4. No gastrointestinal disease. 5. Diffuse hepatic fatty infiltration without focal hepatic lesions. RPTAT:AAJJ Physician Nell Date Time Electronically viewed and signed by Physician Nell on 09/04/2018 05:06 BM/ CC: CELESTINO GLASGOW [phone] MDM: Case was discussed with supervising physician Dr. Julian and he stated that given patient's acute CT with of abdomen pelvis should be ordered. Results within normal limits aside from possible cystitis noted. Therefore, patient treated with 1 week course of ciprofloxacin for possible cystitis. Urine also sent for culture. Patient was advised that she needs follow-up with GI as she is been presenting with similar complaints over the past month and there is nothing abnormal to account for the symptoms. Advised patient she might need an endoscopy. Patient understood and agreed to follow-up. There was some mild transaminitis however there is no hyperbilirubinemia and biliary duct appeared to be nondilated in the imaging. In addition patient had no jaundice and had prior cholecystectomy. I have low suspicion for acute coronary syndrome, AAA, mesenteric ischemia, low er lobe pneumonia, DKA, bowel perforation, cholecystitis, choledocholithiasis, ascending cholangitis, hepatic abscess, pancreatitis, PUD, splenic rupture, diverticulitis, pyelonephritis, nephrolithiasis, appendicitis,, [, ectopic , PID, ovarian torsion or tubo-ovarian abscess]. At this time, patient is stable for discharge and outpatient management. I have instructed the patient to follow-up with his/her primary care physician in 1-2 days. I have discussed with the patient the possibility of needing to see a specialist for further workup and imaging studies if symptoms persist. I have instructed the patient to promptly return to the ER for any new or worsening symptoms including but not limited to increased pain, fever, nausea, vomiting, weakness or LOC. The patient and/or family expressed understanding of and agreement with this plan. All questions were answered. Home care instructions were provided. DISCLAIMER: Inadvertent spelling and grammatical errors are likely due to EHR/dictation software use and do not reflect on the overall quality of patient care. Also, please note that the electronic time recorded on this note does not necessarily reflect the actual time of the patient encounter. Departure Diagnosis: Primary Impression: Abdominal pain Condition: Stable PEECELESTINO Sep 04, 2018 03:33
[2018-09-04] MEDS ORDERED: HYDROmorphONE 2 MG/ML SYG IM STA ×2 (04:20→04:33)
[2018-09-04] MEDS ORDERED: HYDROmorphONE 2 MG/ML SYG IV STA (04:37)
[2018-09-04 05:45] VITALS: BP 118/63; PULSE 87; RESP 18
== END 2018-09-04 05:46 | disposition home or self-care (01) ==
LOC: FTE 01:15
DX: R10.9 Unspecified abdominal pain (principal)
CPT/HCPCS: 36415; 74176; 76856; 80053; 81003; 81025; 83690; 85025; 87086; 96374; 96375; J1170; J1885; J2270; J2405; J7030; Z7502

== ENCOUNTER 2018-10-01 16:00 | Emergency (ER) | payer MEDICAID ==
[~2018-10-01] VITALS: Ht 154.9 cm; Wt 70.9 kg
[2018-10-01 16:06] VITALS: Ht 154.9 cm; Wt 70.9 kg
[2018-10-01] MEDS ORDERED: KETOROLAC 60 MG INJ IM STA (17:58)
[2018-10-01] MEDS ORDERED: OXYCODONE/ACETAMINOPHEN (5/325) TAB PO ONE ×2 (18:00→19:30)
[2018-10-01] MEDS ORDERED: SOD CHLORIDE 0.9% 1,000 ML IV STA (18:16)
[2018-10-01] MEDS ORDERED: ONDANSETRON 4 MG INJ IV STA (18:16)
[2018-10-01 20:08] VITALS: BP 124/66; PULSE 73; RESP 22
== END 2018-10-01 20:11 | disposition home or self-care (01) ==
LOC: FTE 16:00
DX: M54.5 Low back pain (principal)
CPT/HCPCS: 36415; 72100; 80053; 81001; 81025; 85025; 96372; 96374; J1885; J2405; J7030; Z7502; Z7610